=== PATIENT | female | born 1955 | race Caucasian/White ===

== ENCOUNTER 2022-04-08 13:09 | Inpatient (IN) | payer BC, OTHER ==
[~2022-04-08] VITALS: Ht 162.6 cm; Wt 119.3 kg
[2022-04-08 14:40] LABS: Basophils # (auto) 0.2 10 ^3/uL (0-0.2); Basophils % (auto) 2.9 % (0.0-2.0); Eosinophils # (auto) 0.1 10 ^3/uL (0-0.8); Eosinophils % (auto) 1.1 % (0.0-7.0); Hematocrit 36.7 % (36.0-46.0); Hemoglobin 12.1 g/dL (12.2-16.2); Lymphocytes # (auto) 0.6 10 ^3/uL (0.4-5.4); Lymphocytes % (auto) 11.3 % (10.0-50.0); Mean Corpuscular Hemoglobin 29.6 pg (28.0-32.0); Mean Corpuscular Volume 89.7 fL (80.0-100.0); Monocytes # (auto) 0.5 10 ^3/uL (0-1.3); Monocytes % (auto) 8.6 % (0.0-12.0); Neutrophils % (auto) 76.1 % (37.0-80.0); Red Blood Cells 4.09 10^6/uL (4.0-5.20); Red Cell Distribution Width 15.2 % (11.8-14.3); White Blood Cell 5.3 10^3/uL (4.4-10.8)
[2022-04-08 14:58] LABS: Albumin 3.4 g/dL (3.4-5.0); Calcium 8.8 mg/dL (8.5-10.1); Potassium 5.2 mmol/L (3.5-5.1)
[2022-04-08] MEDS ORDERED: MORPHINE SULFATE 4 MG/ML SYR/VIAL IV ONE (15:00)
[2022-04-08] MEDS ORDERED: ONDANSETRON HCL 4 MG/2 ML VIAL IV ONE (15:00)
[2022-04-08 15:02] LABS: BUN/Creatinine Ratio 24.6; Bilirubin, Total 0.7 mg/dL (0.2-1.0); Total Protein 7.6 g/dL (6.4-8.2)
[2022-04-08 15:08] LABS: INR 1.03 (0.9-1.15)
[2022-04-08] MEDS ORDERED: NITROGLYCERIN 0.4 MG SL TAB SL PRN (16:15)
[2022-04-08] MEDS ORDERED: MORPHINE SULFATE INJ 2 MG/ml SYRG IV PRN (16:15)
[2022-04-08] MEDS: SODIUM CHLORIDE 0.9% 1,000 ML IV SCH (18:52)
[2022-04-08] MEDS ORDERED: hydrALAZINE HCL 20 MG/ML VL IV PRN (20:45)
[2022-04-08] MEDS ORDERED: LORazepam 0.5 MG TAB PO PRN (20:45)
[2022-04-08] MEDS ORDERED: DOCUSATE SOD 100 MG CAP PO PRN (20:45)
[2022-04-08] MEDS ORDERED: ACETAMINOPHEN 325 MG TAB PO PRN (20:45)
[2022-04-08 21:13] LABS: Magnesium 2.1 mg/dL (1.6-2.6); Phosphorus 2.4 mg/dL (2.5-4.90)
[2022-04-08 23:12] LABS: INR 1.03 (0.9-1.15); Partial Thromboplastin Time 24.2 sec (23.6-33.0)
[2022-04-09] VITALS (7 sets, daily range): BP systolic 116–160; BP diastolic 60–80
[2022-04-09] MEDS: hydrOXYchloroQUINE SULFATE 200 MG TAB PO SCH ×3 (00:36→21:41)
[2022-04-09] MEDS: ceFAZolin 1GM/50ML 50 ML IV SCH ×2 (00:36→06:24)
[2022-04-09] MEDS: HYDROcodone-ACET 5/325MG TAB PO PRN ×2 (00:37→17:50)
[2022-04-09] MEDS ORDERED: LEVO150T10 PO (01:28)
[2022-04-09] MEDS ORDERED: PRE1T PO (01:28)
[2022-04-09] MEDS ORDERED: HYDR200T36 PO (01:28)
[2022-04-09] MEDS ORDERED: METH2.5T PO (01:28)
[2022-04-09] MEDS: ONDANSETRON HCL 4 MG/2 ML VIAL IV PRN ×2 (02:37→21:42)
[2022-04-09] MEDS: MORPHINE SULFATE INJ 2 MG/ml SYRG IV PRN ×2 (02:37→23:27)
[2022-04-09 04:54] LABS: Urine Bacteria None Seen /hpf (None Seen)
[2022-04-09 05:29] LABS: Alcohol, Urine < 3.0 mg/dL (0-10); Amphetamine Screen, Urine NEGATIVE (NEGATIVE); Barbiturate Scree,Urine NEGATIVE (NEGATIVE); Benzodiazephine Screen, Urine NEGATIVE (NEGATIVE); Cannabinoid Screen, Urine NEGATIVE (NEGATIVE); Cocaine Screen, Urine NEGATIVE (NEGATIVE); Opiate Scree,Urine NEGATIVE (NEGATIVE); Phencyclidine Screen, Urine NEGATIVE (NEGATIVE)
[2022-04-09 05:48] LABS: Protein, Urine 7.7 mg/dL (0.0-11.9)
[2022-04-09 05:50] LABS: Urine Blood 1+ /uL (Negative); Urine Specific Gravity 1.006 (1.001-1.035)
[2022-04-09 05:51] LABS: Urine WBC 2 /hpf (0 - 5)
[2022-04-09 06:14] LABS: Basophils # (auto) 0 10 ^3/uL (0-0.2); Basophils % (auto) 0.6 % (0.0-2.0); Eosinophils # (auto) 0.1 10 ^3/uL (0-0.8); Eosinophils % (auto) 1.3 % (0.0-7.0); Hematocrit 34.7 % (36.0-46.0); Hemoglobin 11.8 g/dL (12.2-16.2); Lymphocytes # (auto) 1.1 10 ^3/uL (0.4-5.4); Lymphocytes % (auto) 19.1 % (10.0-50.0); Mean Corpuscular Hemoglobin 30.4 pg (28.0-32.0); Mean Corpuscular Volume 89.3 fL (80.0-100.0); Monocytes # (auto) 0.7 10 ^3/uL (0-1.3); Monocytes % (auto) 11.3 % (0.0-12.0); Neutrophils % (auto) 67.7 % (37.0-80.0); Nucleated Red Blood Cells % 0.1 %; Red Blood Cells 3.89 10^6/uL (4.0-5.20); Red Cell Distribution Width 15.1 % (11.8-14.3); White Blood Cell 5.9 10^3/uL (4.4-10.8)
[2022-04-09 06:32] LABS: INR 1.05 (0.9-1.15); Partial Thromboplastin Time 26.7 sec (23.6-33.0)
[2022-04-09 06:46] LABS: Albumin 3.1 g/dL (3.4-5.0); Calcium 8.6 mg/dL (8.5-10.1); Magnesium 2.2 mg/dL (1.6-2.6); Potassium 4.4 mmol/L (3.5-5.1)
[2022-04-09 06:56] LABS: BUN/Creatinine Ratio 22.7; Bilirubin, Total 0.9 mg/dL (0.2-1.0); CRP High Sensitivity 5.13 mg/dL (< 0.3); Phosphorus 3.4 mg/dL (2.5-4.90); Total Protein 7.1 g/dL (6.4-8.2)
[2022-04-09] MEDS ORDERED: LEVOTHYROXINE SODIUM 50 MCG TAB PO SCH (07:00)
[2022-04-09 07:01] LABS: Thyroid Stimulating Hormone 19.8 uIU/mL (0.358-3.74)
[2022-04-09] MEDS: SODIUM CHLORIDE 0.9% 1,000 ML IV SCH (07:35)
[2022-04-09] MEDS: ENOXAPARIN SOD 40 MG/0.4 ML SYRINGE SC SCH ×2 (09:21→09:25)
[2022-04-09] MEDS ORDERED: FAMOTIDINE (10MG/ML) 2ML VL IV SCH (10:00)
[2022-04-09] MEDS ORDERED: IOHEXOL 350 MG/ML 100ML IJ ONE (11:44)
[2022-04-09] MEDS ORDERED: MIDAZOLAM HCL 2MG/2ML 2ml VIAL (1mg/ml) ONE (13:10)
[2022-04-09] MEDS ORDERED: fentaNYL CITRATE 100 MCG/2 ML VL ONE (13:10)
[2022-04-09] MEDS ORDERED: TETRACAINE 1% INJ 2 ML VIAL IJ ONE (13:17)
[2022-04-09] MEDS ORDERED: ceFAZolin 1GM/50ML 100 ML IV ONE (13:52)
[2022-04-09] MEDS ORDERED: methylPREDNISolone SOD SUCC 40 MG/ML VL ONE (14:45)
[2022-04-09] MEDS ORDERED: HYDROmorphone HCL 2 MG/ML VL/or syr IV PRN ×2 (15:45)
[2022-04-09] MEDS ORDERED: ONDANSETRON HCL 4 MG/2 ML VIAL IV PRN (15:45)
[2022-04-09] MEDS ORDERED: PROPOFOL 10 MG/ML 20 ML IV ONE (15:48)
[2022-04-09] MEDS ORDERED: ONDANSETRON HCL 4 MG/2 ML VIAL ONE (16:40)
[2022-04-09] MEDS: LACTATED RINGER'S 1,000 ML IV SCH (17:13)
[2022-04-09] MEDS: ceFAZolin 2 GM in D5W 5% 100 ML IV SCH (19:00)
[2022-04-09] MEDS: HYDROCORTISONE SOD SUCC 100 MG/2ML INJ VIAL IV SCH (21:41)
[2022-04-09] MEDS: SODIUM CHLOR 0.9% PF (SALINE LOCK) 10ML VIAL/SYR IV SCH (21:41)
[2022-04-09] MEDS: HYDROcodone-ACET 10/325MG TAB PO PRN (21:42)
[2022-04-10] MEDS: LACTATED RINGER'S 1,000 ML IV SCH (00:45)
[2022-04-10] MEDS: ceFAZolin 2 GM in D5W 5% 100 ML IV SCH ×2 (01:51→09:05)
[2022-04-10 05:00] VITALS: BP 149/81
[2022-04-10] MEDS: SODIUM CHLOR 0.9% PF (SALINE LOCK) 10ML VIAL/SYR IV SCH ×3 (05:44→22:07)
[2022-04-10] MEDS: LEVOTHYROXINE SODIUM 100 MCG TAB PO SCH (05:44)
[2022-04-10] MEDS: HYDROCORTISONE SOD SUCC 100 MG/2ML INJ VIAL IV SCH (05:44)
[2022-04-10 06:09] LABS: Basophils # (auto) 0 10 ^3/uL (0-0.2); Basophils % (auto) 0.1 % (0.0-2.0); Eosinophils # (auto) 0 10 ^3/uL (0-0.8); Hematocrit 32.1 % (36.0-46.0); Lymphocytes # (auto) 0.8 10 ^3/uL (0.4-5.4); Lymphocytes % (auto) 7.7 % (10.0-50.0); Mean Corpuscular Hemoglobin 30.5 pg (28.0-32.0); Mean Corpuscular Hgb Conc. 34.3 g/dL (32.0-36.0); Mean Corpuscular Volume 88.9 fL (80.0-100.0); Monocytes # (auto) 0.6 10 ^3/uL (0-1.3); Monocytes % (auto) 5.8 % (0.0-12.0); Neutrophils # (auto) 9.5 10 ^3/uL (1.6-8.6); Neutrophils % (auto) 86.4 % (37.0-80.0); Red Blood Cells 3.61 10^6/uL (4.0-5.20); Red Cell Distribution Width 14.6 % (11.8-14.3)
[2022-04-10 06:26] LABS: BUN/Creatinine Ratio 18.3; Calcium 8.5 mg/dL (8.5-10.1); Potassium 4.3 mmol/L (3.5-5.1)
[2022-04-10 08:53] VITALS: BP 144/83
[2022-04-10] MEDS: ONDANSETRON HCL 4 MG/2 ML VIAL IV PRN (08:56)
[2022-04-10] MEDS: hydrOXYchloroQUINE SULFATE 200 MG TAB PO SCH ×2 (08:57→22:07)
[2022-04-10] MEDS: HYDROcodone-ACET 10/325MG TAB PO PRN ×2 (09:06→22:06)
[2022-04-10] MEDS: ENOXAPARIN SOD 40 MG/0.4 ML SYRINGE SC SCH (09:06)
[2022-04-10] MEDS ORDERED: VANCOMYCIN PER PHARMACY 0 MG IV SCH (10:30)
[2022-04-10] MEDS ORDERED: ERGOCALCIFEROL 50,000 UNIT(1.25MG) CAP PO SCH (11:45)
[2022-04-10 13:00] VITALS: BP 145/78
[2022-04-10] MEDS: VANCOMYCIN 1GM/250ML 250 ML IV SCH ×3 (14:24→22:30)
[2022-04-10 17:19] VITALS: BP 110/51
[2022-04-10 22:00] VITALS: BP 122/63
[2022-04-11 05:00] VITALS: BP 114/67
[2022-04-11 05:58] LABS: Basophils # (auto) 0 10 ^3/uL (0-0.2); Basophils % (auto) 0.7 % (0.0-2.0); Eosinophils # (auto) 0.2 10 ^3/uL (0-0.8); Eosinophils % (auto) 2.6 % (0.0-7.0); Hemoglobin 9.8 g/dL (12.2-16.2); Lymphocytes # (auto) 1.7 10 ^3/uL (0.4-5.4); Lymphocytes % (auto) 25.7 % (10.0-50.0); Mean Corpuscular Hemoglobin 32.2 pg (28.0-32.0); Mean Corpuscular Hgb Conc. 36.3 g/dL (32.0-36.0); Mean Corpuscular Volume 88.8 fL (80.0-100.0); Monocytes % (auto) 15.1 % (0.0-12.0); Neutrophils # (auto) 3.6 10 ^3/uL (1.6-8.6); Neutrophils % (auto) 55.9 % (37.0-80.0); Nucleated Red Blood Cells % 0.1 %; Red Blood Cells 3.04 10^6/uL (4.0-5.20); Red Cell Distribution Width 14.8 % (11.8-14.3); White Blood Cell 6.5 10^3/uL (4.4-10.8)
[2022-04-11 06:13] LABS: Potassium 3.6 mmol/L (3.5-5.1)
[2022-04-11] MEDS: LEVOTHYROXINE SODIUM 100 MCG TAB PO SCH (06:14)
[2022-04-11] MEDS: VANCOMYCIN 1GM/250ML 250 ML IV SCH ×3 (06:15→23:05)
[2022-04-11 06:18] LABS: BUN/Creatinine Ratio 26.9; Calcium 8.4 mg/dL (8.5-10.1)
[2022-04-11] MEDS: SODIUM CHLOR 0.9% PF (SALINE LOCK) 10ML VIAL/SYR IV SCH ×3 (06:36→22:23)
[2022-04-11 09:00] VITALS: BP 136/69
[2022-04-11] MEDS: CEFTRIAXONE SODIUM 2 GM in D5W 5% 50 ML IV SCH (09:16)
[2022-04-11] MEDS: hydrOXYchloroQUINE SULFATE 200 MG TAB PO SCH ×2 (09:16→22:24)
[2022-04-11] MEDS: ENOXAPARIN SOD 40 MG/0.4 ML SYRINGE SC SCH (09:17)
[2022-04-11 13:00] VITALS: BP 138/66
[2022-04-11] MEDS: MORPHINE SULFATE INJ 2 MG/ml SYRG IV PRN (14:20)
[2022-04-11 17:00] VITALS: BP 96/63
[2022-04-11] MEDS: HYDROcodone-ACET 10/325MG TAB PO PRN ×2 (17:07→22:19)
[2022-04-11 22:00] VITALS: BP 118/62
[2022-04-12 05:00] VITALS: BP 130/72
[2022-04-12] MEDS: SODIUM CHLOR 0.9% PF (SALINE LOCK) 10ML VIAL/SYR IV SCH ×3 (05:52→22:00)
[2022-04-12] MEDS: VANCOMYCIN 1GM/250ML 250 ML IV SCH ×2 (05:52→20:00)
[2022-04-12] MEDS: LEVOTHYROXINE SODIUM 100 MCG TAB PO SCH (06:52)
[2022-04-12 09:00] VITALS: BP 136/69
[2022-04-12] MEDS: CEFTRIAXONE SODIUM 2 GM in D5W 5% 50 ML IV SCH (10:00)
[2022-04-12] MEDS: ENOXAPARIN SOD 40 MG/0.4 ML SYRINGE SC SCH (10:00)
[2022-04-12] MEDS: hydrOXYchloroQUINE SULFATE 200 MG TAB PO SCH ×2 (10:18→22:20)
[2022-04-12 13:00] VITALS: BP 137/73
[2022-04-12] MEDS ORDERED: DOXY-340 PO (14:39)
[2022-04-12] MEDS ORDERED: ERGO1CAP23 PO (14:39)
[2022-04-12] MEDS ORDERED: LEV100T PO (14:39)
[2022-04-12 16:12] VITALS: BP 169/104
[2022-04-12] MEDS: HYDROcodone-ACET 10/325MG TAB PO PRN (20:21)
[2022-04-12 22:18] VITALS: BP 149/69
[2022-04-13 05:00] VITALS: BP 145/75
[2022-04-13] MEDS: SODIUM CHLOR 0.9% PF (SALINE LOCK) 10ML VIAL/SYR IV SCH ×2 (05:37→14:26)
[2022-04-13] MEDS: LEVOTHYROXINE SODIUM 100 MCG TAB PO SCH (06:03)
[2022-04-13 09:00] VITALS: BP 155/79
[2022-04-13] MEDS: CEFTRIAXONE SODIUM 2 GM in D5W 5% 50 ML IV SCH (09:54)
[2022-04-13] MEDS: VANCOMYCIN 1GM/250ML 250 ML IV SCH (09:54)
[2022-04-13] MEDS: hydrOXYchloroQUINE SULFATE 200 MG TAB PO SCH (09:55)
[2022-04-13] MEDS: ENOXAPARIN SOD 40 MG/0.4 ML SYRINGE SC SCH (09:56)
== END 2022-04-13 15:15 | disposition home or self-care (01) | DRG 493 ==
LOC: EDBD 13:09 → ER 13:09 → OVERFLOW 16:06 → WEST WING 22:33
PROVIDERS: ADMIT Hospitalist; ATTEND Internal Medicine
PROC: 0QSG06Z Reposition Right Tibia with Intramedullary Internal Fixation Device, Open Approach (ICD-10-PCS; principal; 2022-04-09 13:59)
DX: M84.461A Pathological fracture, right tibia, initial encounter for fracture (principal); R78.81 Bacteremia; Z68.42 Body mass index [BMI] 45.0-49.9, adult; M84.463A Pathological fracture, right fibula, initial encounter for fracture; E03.9 Hypothyroidism, unspecified; E66.01 Morbid (severe) obesity due to excess calories; I10 Essential (primary) hypertension; M06.9 Rheumatoid arthritis, unspecified; W18.39XA Other fall on same level, initial encounter; M19.90 Unspecified osteoarthritis, unspecified site; Z96.641 Presence of right artificial hip joint; B95.7 Other staphylococcus as the cause of diseases classified elsewhere; Z79.899 Other long term (current) drug therapy; Z85.828 Personal history of other malignant neoplasm of skin; Z90.710 Acquired absence of both cervix and uterus; Z88.5 Allergy status to narcotic agent; Z91.81 History of falling; Y93.89 Activity, other specified; Y92.89 Other specified places as the place of occurrence of the external cause; Y99.8 Other external cause status
CPT/HCPCS: 36415; 71045; 73590; 73600; 73610; 76000; 80048; 80053; 80061; 80202; 80307; 81001; 82306; 82550; 82565; 82728; 83036; 83615; 83690; 83735; 83880; 84100; 84156; 84439; 84443; 84484; 84550; 85025; 85379; 85610; 85652; 85730; 86141; 86850; 86900; 86901; 87040; 87077; 87086; 87088; 87186; 93005; 93970; 96361; 96374; 96375; 97110; 97116; 97163; 97530; G0378; J0690; J0696; J2250; J2405; J2704; J3490; J7060

== ENCOUNTER 2024-11-27 12:00 | Emergency (ER) | payer BC ==
[~2024-11-27] VITALS: Ht 170.2 cm; Wt 154.5 kg
[~2024-11-27 12:00] MED LIST: DOXY1CAP57 PO; ERGO1CAP23 PO; HYDR200T36 PO; LEVO-849 PO; METH2.5T PO; PRE1T PO
[2024-11-27 12:21] VITALS: BP 71/44; PULSE 141; RESP 24
[2024-11-27] MEDS: CEFEPIME 2GM/50ML NS 50 ML IV ONE (12:34)
[2024-11-27] MEDS: SODIUM CHLORIDE 0.9% 3,000 ML IV ONE (12:34)
[2024-11-27] MEDS: ONDANSETRON HCL 4 MG/2 ML VIAL IV ONE (12:34)
[2024-11-27] MEDS: VANCOMYCIN 1GM/250ML KIT 200 ML IV ONE (12:34)
[2024-11-27 14:19] LABS: Basophils # (auto) 0 10 ^3/uL (0-0.2); Basophils % (auto) 0.1 % (0.0-2.0); Eosinophils # (auto) 0 10 ^3/uL (0-0.8); Monocytes # (auto) 0.3 10 ^3/uL (0-1.3); Neutrophils # (auto) 11.3 10 ^3/uL (1.6-8.6); Neutrophils % (auto) 89.3 % (37.0-80.0)
[2024-11-27 14:20] LABS: Eosinophils % (auto) 0.2 % (0.0-7.0); Hematocrit 40.1 % (36.0-46.0); Hemoglobin 12.4 g/dL (12.2-16.2); Lymphocytes % (auto) 7.7 % (10.0-50.0); Mean Corpuscular Hemoglobin 28.9 pg (28.0-32.0); Mean Corpuscular Hgb Conc. 30.9 g/dL (32.0-36.0); Mean Corpuscular Volume 93.7 fL (80.0-100.0); Monocytes % (auto) 2.7 % (0.0-12.0); Nucleated Red Blood Cells % 0.3 %; Platelet Count (auto) 166 10^3/uL (140-450); Red Blood Cells 4.28 10^6/uL (4.0-5.20); White Blood Cell 12.7 10^3/uL (4.4-10.8)
--- NOTE | 2024-11-27 14:30 | DVH ---
CHEST RADIOGRAPH Indication: fever Technique: Single frontal view of the chest was obtained Comparison: RANK2 on DOS: 04/09/22, CHEST XRAY 1 VIEW on DOS: 04/08/22, CXR1 on DOS: 04/08/22 FINDINGS: Lines and Tubes: None Lungs: Mild interstitial prominence. Hazy opacification bilateral lower lung zones with indistinctne ss of bilateral hemidiaphragm. Linear density of the right mid lung zone. No pneumothorax. Cardiomediastinal contours: Unremarkable Bones: Osseous destruction of the left humeral head. IMPRESSION: Pulmonary vascular congestion with small left and trace right-sided pleural effusions and associated atelectasis. Right mid lung zone atelectasis.
[2024-11-27 14:32] LABS: Albumin 2.1 g/dL (3.2-4.8); Alkaline Phosphatase 118 U/L (46-116); Anion Gap 19 (5-15); Aspartate Aminotransferase 109 U/L (13-40); Bilirubin, Total 0.6 mg/dL (0.2-1.0); Carbon Dioxide 12 mmol/L (20-31); Chloride 101 mmol/L (98-107); Glucose 70 mg/dL (74-106); Sodium 132 mmol/L (136-145); Total Protein 4.9 g/dL (5.7-8.2)
[2024-11-27 14:35] LABS: Lactic Acid w/Reflex 8.2 mmol/L (0.4-2.0)
[2024-11-27 14:36] LABS: Alanine Aminotransferase 17 U/L (7-40); BUN/Creatinine Ratio 45.8 (10.0-20.0); Blood Urea Nitrogen 44 mg/dL (9-23); Potassium 5.6 mmol/L (3.5-5.1)
--- NOTE | 2024-11-27 16:01 | ED.PDOC ---
HPI Comments 69F presents from home with several months of worsening weakness, worsening full body edema, and cough. Patient was very weak and unable to give a full history. Patients later arrived and reports that patient was refusing to come to the ER for multiple weaks despite him pleading for her to come because she appeared more and more ill over the last several months. Chief Complaint: Low Blood Pressure Time Seen by MD: 12:16 Primary Care Provider: GISSEL Reviewed Notes: Nurses Notes, Stem Frazer Notes, Medications, Allergies Allergies: Coded Allergies: Codeine (Verified Allergy, Severe, 04/08/22) Home Meds Active Scripts Doxycycline Monohydrate (Doxycycline Monohydrate) 100 Mg Cap, 1 CAP PO BID for 4 Days, #8 CAP Prov:LEILA HAINES MD 04/12/22 Levothyroxine Sodium (SYNTHROID TABLET) 100 Mcg Tb, 200 MCG PO QAM for 30 Days, #30 TAB Prov:LEILA HAINES MD 04/12/22 Ergocalciferol (VITAMIN D 70194 UNIT) 50,[address] [place], [address] UNIT PO Q7D for 5 Days, #5 CAP Prov:LEILA HAINES MD 04/12/22 Reported Medications Prednisone (PREDNISONE) 1 Mg Tb, TAB PO 04/09/22 Hydroxychloroquine Sulfate (Hydroxychloroquine Sulfat) 200 Mg Tab, 1 TAB PO BID 04/09/22 Methotrexate (Methotrexate) 2.5 Mg Tab, 6 TAB PO QWEEKLY 04/09/22 Information Source: Patient, Emergency Med Personnel Mode of Arrival: EMS Brought in by: EMS Severity: Moderate Timing: Days Duration: Since onset Prehospital treatment: None Onset: At Rest Cardiac Risk Factors: None PE Risk Factors: None History of: None Modifying Factors: Nothing Past Medical History PAST MEDICAL HISTORY: Arthritis, Cancer, Thyroid Surgical History: Hysterectomy, Denies all surgeries PAYMENT MANAGER History: No Pertinent PAYMENT MANAGER History Family History Family History: Family hx of Cancer Social History Smoker: Non-Smoker Alcohol: Occasionally Drugs: Denies Drug Use Lives In: Home Constitutional: denies: chills, diaphoresis, fatigue, fever, malaise, sweats, weakness, others EENTM: denies: blurred vision, double vision, ear bleeding, ear discharge, ear drainage, ear pain, ear ringing, eye pain, eye redness, hearing loss, mouth pain, mouth swelling, nasal discharge, nose bleeding, nose congestion, nose pain, photophobia, tearing, throat pain, throat swelling, voice changes, others Respiratory: denies: cough, hemoptysis, orthopnea, SOB at rest, shortness of breath, SOB with excertion, stridor, wheezing, others Cardiovascular: denies: chest pain, dizzy spells, diaphoresis, Dyspnea on exertion, edema, irregular heart beat, left arm pain, lightheadedness, palpitations, PND, syncope, others Gastrointestinal: denies: abdomen distended, abdominal pain, blood streaked bowels, constipated, diarrhea, dysphagia, difficulty swallowing, hematemesis, melena, nausea, poor appetite, poor fluid intake, rectal bleeding, rectal pain, vomiting, others Genitourinary: denies: abnormal vagina bleeding, burning, dyspareunia, dysuria, flank pain, frequency, hematuria, incontinence, pain, , vagina discharge , urgency, others Neurological: denies: dizziness, fainting, headache, left sided numbness, left sided weakness, numbness, paresthesia, pre-existing deficit, right sided numbness, right sided weakness, seizure, speech problems, tingling, tremors, weakness, others Musculoskeletal: denies: back pain, gout, joint pain, joint swelling, muscle pain, muscle stiffness, neck pain, others Integumetry: reports: wounds (pressure wounds); denies: bruises, change in color, change in hair/nails, dryness, laceration, lesions, lumps, rash, others Allergic/Immunocompromised: denies: Difficulty Healing, Frequent Infections, Hives, Itching, others Hematologic/Lymphatic: denies: anemia, blood clots, easy bleeding, easy bruising, swollen glands, others Endocrine: denies: excessive hunger, excessive sweating, excessive thirst, excessive urination, flushing, intolerance to cold, intolerance to heat, unexplained weight gain, unexplained weight loss, others Psychiatric: denies: anxiety, bipolar disorder, depression, hopeless, panic disorder, schizophrenia, sleepless, suicidal, others All Other Systems: Reviewed and Negative Physical Exam General Appearance: Mild Distress, Obese HEENT: Pale Conjuntivae (L), Pale Conjuntivae (R) Neck: Full Range of Motion, Non-Tender, Normal, Normal Inspection Respiratory: Chest Non-Tender, Lungs Clear, No Accessory Muscle Use, No Respira tory Distress, Normal Breath Sounds Cardiovascular: Tachycardia Breast Exam: Deferred Gastrointestinal: Non Tender, No Pulsatile Mass, Soft Genitalia: Deferred Pelvic: Deferred Rectal: Deferred Extremities: No calf tenderness, Normal capillary refill, Non-tender, Swelling Musculoskeletal : Apperance: Normal Neurologic: Alert, No Motor Deficits, Normal Affect Cerebellar Function: NOT DONE Reflexes: NOT DONE Skin: Dry, Normal Color, Warm Lymphatic: No Adenopathy Was a procedure done? Was a procedure done?: No CP Differential Dx Differential Diagnosis: Electrolyte Disorder, Heart Failure Comment Sepsis X-Ray, Labs, Meds, VS Vital Signs Date Time Temp Pulse Resp B/P (MAP) Pulse Ox O2 Delivery O2 Flow Rate FiO2 11/27/24 20:45 0 11/27/24 20:43 0 Ambu-Bag 11/27/24 12:21 100.0 141 24 71/44 (53) 11/27/24 12:05 138 Lab Test 11/27/24 13:50 Range/Units White Blood Count 12.7 H 4.4-10.8 10^3/uL Red Blood Count 4.28 4.0-5.20 10^6/uL Hemoglobin 12.4 12.2-16.2 g/dL Hematocrit 40.1 36.0-46.0 % Mean Corpuscular Volume 93.7 80.0-100.0 fL Mean Corpuscular Hemoglobin 28.9 28.0-32.0 pg Mean Corpuscular Hemoglobin Concent 30.9 L 32.0-36.0 g/dL Red Cell Distribution Width 24.0 H 11.8-14.3 % Platelet Count 166 140-450 10^3/uL Mean Platelet Volume 8.5 6.9-10.8 fL Neutrophils (%) (Auto) 89.3 H 37.0-80.0 % Lymphocytes (%) (Auto) 7.7 L 10.0-50.0 % Monocytes (%) (Auto) 2.7 0.0-12.0 % Eosinophils (%) (Auto) 0.2 0.0-7.0 % Basophils (%) (Auto) 0.1 0.0-2.0 % Neutrophils # (Auto) 11.3 H 1.6-8.6 10 ^3/uL Lymphocytes # (Auto) 1.0 0.4-5.4 10 ^3/uL Monocytes # (Auto) 0.3 0-1.3 10 ^3/uL Eosinophils # (Auto) 0 0-0.8 10 ^3/uL Basophils # (Auto) 0 0-0.2 10 ^3/uL Nucleated Red Blood Cells 0.3 % Sodium Level 132 L 136-145 mmol/L Potassium Level 5.6 *H 3.5-5.1 mmol/L Chloride Level 101 98-107 mmol/L Carbon Dioxide Level 12 L 20-31 mmol/L Anion Gap 19 H 5-15 Blood Urea Nitrogen 44 H 9-23 mg/dL Creatinine 0.96 0.550-1.02 mg/dL Glomerular Filtration Rate Calc 64 >90 mL/min BUN/Creatinine Ratio 45.8 H 10.0-20.0 Serum Glucose 70 L 74-106 mg/dL Lactic Acid Level 8.2 *H 0.4-2.0 mmol/L Calcium Level 7.0 L 8.7-10.4 mg/dL Total Bilirubin 0.6 0.2-1.0 mg/dL Aspartate Amino Transferase (AST) 109 H 13-40 U/L Alanine Aminotransferase (ALT) 17 7-40 U/L Alkaline Phosphatase 118 H 46-116 U/L Troponin I High Sensitivity 274 *H </=34 ng/L B-Type Natriuretic Peptide 250.47 0-100 pg/mL Total Protein 4.9 L 5.7-8.2 g/dL Albumin 2.1 L 3.2-4.8 g/dL Current Medications Medications (Trade) Dose Ordered Sig/Markus Route Start Time Stop Time Status Last Admin Sodium Chloride 3,000 ml @ 1,000 mls/hr Q3H ONCE IV 11/27/24 12:15 11/27/24 15:14 DC 11/27/24 12:34 Ondansetron HCl (Zofran) 4 mg ONCE ONCE IV 11/27/24 12:15 11/27/24 12:16 DC 11/27/24 12:34 Cefepime HCl 50 ml @ 12.5 mls/hr ONCE ONCE IV 11/27/24 12:15 11/27/24 16:14 DC 11/27/24 12:34 Vancomycin HCl 200 ml @ 200 mls/hr ONCE ONCE IV 11/27/24 12:15 11/27/24 13:14 DC 11/27/24 12:34 [place] [id number] Ph: [phone] DIAGNOSTIC IMAGING Diagnostic Imaging Report : [id number] Signed PATIENT: MEGGAN HELMS ACCT: [id number] UNIT: [id number] : 1955 LOC: ER ROOM / BED: / AGE / SEX: 69 / F ADM STATUS: REG ER SERVICE 25 ORDERING PHYSICIAN: SAEID MYERS MD PROCEDURE(s): CXRP - CHEST PORTABLE REASON: fever ORDER NUMBER(s): [id number], ACCESSION NUMBER(s): [id number] CHEST RADIOGRAPH Indication: fever Technique: Single frontal view of the chest was obtained Comparison: RANK2 on DOS: 04/09/22, CHEST XRAY 1 VIEW on DOS: 04/08/22, CXR1 on DOS: 04/08/22 FINDINGS: Lines and Tubes: None Lungs: Mild interstitial prominence. Hazy opacification bilateral lower lung zones with indistinctness of bilateral hemidiaphragm. Linear density of the right mid lung zone. No pneumothorax. Cardiomediastinal contours: Unremarkable Bones: Osseous destruction of the left humeral head. IMPRESSION: Pulmonary vascular congestion with small left and trace right-sided pleural effusions and associated atelectasis. Right mid lung zone atelectasis. ATED BY: YARY MULLIGAN DO DICTATED DATE/TIME: 11/27/241426 SIGNED BY: YARY MULLIGAN DO SIGNED DATE/TIME: 11/27/241426 CC: Time of 1ST Reevaluation: 12:46 Reevaluation 1ST: Unchanged Patient Education/Counseling: Diagnosis, Treatment Family Education/Counseling: No Family Present Departure 1 Departure Time of Disposition: 22:54 (Patient presented likely in septic shock. She was started on antibiotics and fluids and planned for admission. Patient's heart suddenly stopped and pateint was coded. ACLS per protocols. TOD was called at 1536) Impression: Primary Impression: Cardiac arrest Additional Impression: Septic shock Disposition: 20 Condition: Other () Critical Care Note Critical Care Time?: Yes Critical care comment: Septic Shock Authorized and Performed by: Saeid Myers MD Total critical care time: Approximately 48 minutes Due to a high probability of clinically significant, life threatening deterioration, the patient required my highest level of preparedness to intervene emergently and I personally spent this critical care time directly and personally managing the patient. This critical care time included obtaining a history; examining the patient; pulse oximetry; ordering and review of studies; arranging urgent treatment with development of a management plan; evaluation of patient's response to treatment; frequent reassessment; and, discussions with other providers. This critical care time was performed to assess and manage the high probability of imminent, life-threatening deterioration that could result in multi-organ failure. It was exclusive of separately billable procedures and treating other patients and teaching time. Please see my other sections and the rest of the note for further information on patient assessment and treatment. Stability Stability form required: No Heart Score Heart Score: Heart Score Response (Comments) Value History Slightly Suspicious 0 EKG Repolarization Disturb 1 Age >65 2 Risk Factors 1 or 2 risk factors 1 Troponin 1-2 x's Normal limit 1 Total 5 I personally scribed for SAEID MYERS MD ([email or web address]) on 11/27/24 at 16:01. Electronically submitted by Safia Palma ([email or web address]). SAEID MYERS MD Nov 27, 2024 16:01
--- NOTE | 2024-11-27 19:14 | ECG ---
[facility] Test Date: 2024-11-27 Test Time: 12:05:11 Pat Name: MEGGAN HELMS Department: ED Room: Gender: F [place] Refinisher: SHAW : 1955 Requested By: SAEID MYERS Order Number: [id number] Reading MD: Paresh Acuna Measurements Intervals [place] Rate: 138 P: 0 SC: 0 QRS: 64 QRSD: 94 T: 234 QT: 328 QTc: 497 Interpretive Statements Atrial fibrillation Nonspecific repol abnormality, diffuse leads Electronically Signed On 11-28-2024 14:14:49 PST by Paresh Acuna Please click the below link to view image of tracing.
--- NOTE | 2024-11-27 20:43 | RESUS ---
CODE BLUE ASSESSSMENT History of Events History of Events: OFFLOADED ONTO SHARONDA FROM EMS AT 1410 SEE NOTE, PATIENT CODED AT 1521. Initial Information Date: Nov 27, 2024 Time: 15:21 Location of Arrest: ER Arrest Witnessed: Yes CPR started initial time: 15:21 CPR started by whom: Hospital Staff Pre-Hospital Care: ACLS Type of arrest: Cardiac, Adult, Witnessed Spontaneous Respirations: No Pulse Present: No Crash Cart Opened and Supplies: Yes Airway Ventilation Breathing at Onset: Assisted Oxygen Delivery Method: Ambu-Bag Time of first Assisted Ventila: 15:21 Artificial Ventilation: Bag/Mask Circulation Circulation #1: Time: 15:21 Pulse Rate (adult): 0 Blood Pressure Systolic: 0 Blood Pressure Diastolic: 0 Circulation Comment: PEA Circulation #2: Time: 15:23 Pulse Rate (adult): 0 Blood Pressure Systolic: 0 Blood Pressure Diastolic: 0 Circulation Comment: PEA Circulation #3: Time: 15:25 Pulse Rate (adult): 0 Blood Pressure Systolic: 0 Blood Pressure Diastolic: 0 Circulation Comment: PEA Circulation #4: Time: 15:27 Pulse Rate (adult): 0 Blood Pressure Systolic: 0 Blood Pressure Diastolic: 0 Circulation Comment: PEA Circulation #5: Time: 15:29 Pulse Rate (adult): 0 Blood Pressure Systolic: 0 Blood Pressure Diastolic: 0 Circulation Comment: PEA Circulation #6: Time: 15:31 Pulse Rate (adult): 0 Blood Pressure Systolic: 0 Blood Pressure Diastolic: 0 Circulation Comment: PEA Circulation #7: Time: 15:33 Pulse Rate (adult): 0 Blood Pressure Systolic: 0 Blood Pressure Diastolic: 0 Circulation Comment: PEA Circulation #8: Time: 15:35 Pulse Rate (adult): 0 Blood Pressure Systolic: 0 Blood Pressure Diastolic: 0 Circulation Comment: PEA Defibrillation Defbrillation : Time Defibrillator Applied: 15:21 EKG Rhythm: PEA Compressions: Manual Procedure - IV Procedure - IV : IV Side: Right IV Location: Upper Arm Anterior Comment PREVIOUSLY PLACED Procedure - Intraosseous Time of intraosseous: 15:27 Site of Intraosseous: Tibia rachelle-medial (LEFT) Intraosseous inserted by: DR MYERS Comment: RIGHT I/O TO HUMERUS AT [address] MYERS DUE TO LEFT I/O LEAKING Medications & Response Medications and Responses #1: Medication Time: 15:23 ADULT Medications Given ADULT: Epinephrine 1 mg Route of Administration: IV Medications and Responses #2: Medication Time: 15:26 ADULT Medications Given ADULT: Epinephrine 1 mg, Calcium Chloride 10 mL (X2) Route of Administration: IV Medications and Responses #3: Medication Time: 15:30 ADULT Medications Given ADULT: Magnesium Sulfate 2 gm Route of Administration: IO Medications and Responses #4: Medication Time: 15:33 ADULT Medications Given ADULT: Epinephrine 1 mg Route of Administration: IO Medication Comment: NO IV/IO ACCESS UNTIL THIS TIME Medications and Responses #5: Medication Time: 15:36 ADULT Medications Given ADULT: Epinephrine 1 mg Route of Administration: IO Nurses Notes Geovanny Coma Scale Eye Opening: None (1) Geovanny Coma Scale Verbal: None (1) Geovanny Coma Scale Motor: None (1) Bedside Blood Glucose: 76 Time Code Ended Time Code Ended: 15:36 Post Arrest Status: Outcome of code: Unsuccessful Patient pronounced by: DR MYERS Time patient pronounced: 15:36 Family notified: Yes Code Team Present: TEODORO CEJA RN, DAMIEN RN, PAKO RN, HERB RN, JASMIN [employer] OPERATOR, LEANDRO [facility], ALEX RT, MEGGAN RT. Teodoro Mckenna Nov 27, 2024 20:43
== END 2024-11-27 17:26 ==
LOC: EDBD 12:00 → ER 12:00
DX: I46.9 Cardiac arrest, cause unspecified (principal); E03.9 Hypothyroidism, unspecified; J90 Pleural effusion, not elsewhere classified; M19.90 Unspecified osteoarthritis, unspecified site; Z90.710 Acquired absence of both cervix and uterus; Z88.5 Allergy status to narcotic agent
CPT/HCPCS: 36415; 71045; 80053; 83605; 83880; 84484; 85025; 87040; 87077; 87186; 92950; 93005; 96365; 96366; 96368; 96375; 99291; J0692; J2405; J3370; J7030